=== PATIENT | female | born 1995 | race Caucasian/White ===

== ENCOUNTER 2019-04-30 13:09 | Outpatient (CLI) | payer MEDICAID | END 2019-04-30 15:01 | disposition home or self-care (01) | LOC: OBT 13:09 → L-D 13:09 → OBT 15:01 | DX: O36.8130 Decreased fetal movements, third trimester, not applicable or unspecified (principal); Z3A.38 38 weeks gestation of pregnancy | CPT/HCPCS: 76818 ==

== ENCOUNTER 2019-05-08 09:33 | Inpatient (IN) | payer MEDICAID ==
[2019-05-08] MEDS ORDERED: METHYLERGONOVINE 0.2 MG INJ IM (11:30)
[2019-05-08] MEDS ORDERED: CARBOPROST 250 MCG INJ IM (11:30)
[2019-05-08] MEDS ORDERED: OXYTOCIN 30 UNITS/LR 500 ML IV (11:30)
[2019-05-08] MEDS ORDERED: MISOPROSTOL 200 MCG TAB PR (11:30)
[2019-05-08] MEDS ORDERED: BUTORPHANOL 2 MG INJ IV (11:30)
[2019-05-08] MEDS: LACTATED RINGER'S 1,000 ML IV ×2 (11:38→15:16)
[2019-05-08] MEDS: BUTORPHANOL 2 MG INJ IV (12:43)
[2019-05-08 15:28] LABS: ADD MAN DIFF? NO
[2019-05-08 15:30] LABS: BASOPHIL # 0.1 10^3/ul (0.0-0.1); BASOPHILS % 0.5 % (0.0-2.0); EOSINOPHILS # 0.1 10^3/ul (0.0-0.5); EOSINOPHILS % 0.6 % (0.0-7.0); HEMATOCRIT 37.4 % (37.0-47.0); HEMOGLOBIN 12.3 g/dl (12.0-16.0); LYMPHOCYTES % 15.8 % (15.0-51.0); MEAN CORPUSCULAR HEMOGLOBIN 29.9 pg (29.0-33.0); MEAN CORPUSCULAR HGB CONC 32.9 g/dl (32.0-37.0); MEAN CORPUSCULAR VOLUME 90.8 fl (82.0-101.0); MEAN PLATELET VOLUME 11.8 fl (7.4-10.4); MONOCYTE # 0.7 10^3/ul (0.3-0.9); MONOCYTES % 5.4 % (0.0-11.0); NEUTROPHIL # 9.9 10^3/ul (1.6-7.5); NEUTROPHILS % 77.1 % (39.0-77.0); PLATELET COUNT 213 10^3/UL (140-415); RED BLOOD COUNT 4.12 10^6/ul (4.20-5.40); RED CELL DISTRIBUTION WIDTH 13.9 % (11.5-14.5)
[2019-05-08 15:30] LABS: WHITE BLOOD COUNT 12.8 10^3/ul (4.8-10.8)
[2019-05-08 15:49] LABS: PARTIAL THROMBOPLASTIN TIME 26.4 Sec (23.0-35.0)
[2019-05-08] MEDS ORDERED: NALOXONE (0.4 MG/ML) INJ IV (16:00)
[2019-05-08] MEDS ORDERED: DIPHENHYDRAMINE 50 MG INJ IV (16:00)
[2019-05-08] MEDS ORDERED: ONDANSETRON 4 MG INJ IV (16:00)
[2019-05-08 18:13] LABS: PROTIME 12.3 Sec (11.9-14.9)
[2019-05-08] MEDS ORDERED: MINERAL OIL LIGHT 10 ML VIAL (20:19)
[2019-05-08] MEDS: OXYTOCIN 30 UNITS/LR 500 ML IV (20:36)
[2019-05-09] MEDS: FENTAnyl 2MCG/ML-ROPIV 0.2% 100 ML BAG EPI (00:02)
[2019-05-09] MEDS: OXYTOCIN 30 UNITS/LR 500 ML IV ×2 (03:08)
[2019-05-09] MEDS: LIDOCAINE 1% (MPF) 30 ML INJ INJ (03:09)
[2019-05-09] MEDS ORDERED: OXYTOCIN 30 UNITS/LR 500 ML IV ×4 (03:17→05:00)
[2019-05-09] MEDS ORDERED: MISOPROSTOL 200 MCG TAB PR ×2 (03:30→05:00)
[2019-05-09] MEDS ORDERED: NACL 0.9% 3 ML SYG IV (03:30)
[2019-05-09] MEDS ORDERED: ONDANSETRON 4 MG INJ IV (03:30)
[2019-05-09] MEDS ORDERED: METHYLERGONOVINE 0.2 MG INJ IM ×2 (03:30→05:00)
[2019-05-09] MEDS ORDERED: CARBOPROST 250 MCG INJ IM ×2 (03:30→05:00)
[2019-05-09] MEDS ORDERED: LANOLIN HPA 1 PKT TOP (05:00)
[2019-05-09] MEDS ORDERED: DIBUCAINE 1% 30 GM OINT TOP (05:00)
[2019-05-09] MEDS ORDERED: ACETAMINOPHEN 325 MG TAB PO (05:00)
[2019-05-09] MEDS: WITCH HAZEL/GLYCERIN PAD PR (05:55)
[2019-05-09] MEDS: BENZOCAINE 20% 56 ML SPRAY TOP (05:55)
[2019-05-09] MEDS: IBUPROFEN 800 MG TAB PO ×3 (05:55→18:00)
[2019-05-09] MEDS ORDERED: IBUPROFEN 600 MG TAB PO (06:00)
[2019-05-09] MEDS: LACTATED RINGER'S 1,000 ML IV* ×3 (07:43→19:00)
[2019-05-09 08:39] LABS: HEMATOCRIT 30.4 % (37.0-47.0); HEMOGLOBIN 10.2 g/dl (12.0-16.0)
[2019-05-09] MEDS: SENNA/DOCUSATE NA (8.6MG/50MG) TAB PO ×2 (11:51→22:20)
[2019-05-09 15:49] LABS: RAPID PLASMA REAGIN NONREACTIVE (NR)
[2019-05-09] MEDS: HYDROCODONE/APAP (5/325) TAB PO (20:03)
[2019-05-10] MEDS: IBUPROFEN 800 MG TAB PO ×4 (00:11→18:00)
[2019-05-10 08:16] LABS: ADD MAN DIFF? NO
[2019-05-10 08:19] LABS: BASOPHIL # 0.1 10^3/ul (0.0-0.1); BASOPHILS % 0.3 % (0.0-2.0); EOSINOPHILS # 0.2 10^3/ul (0.0-0.5); EOSINOPHILS % 1.4 % (0.0-7.0); HEMOGLOBIN 9.5 g/dl (12.0-16.0); LYMPHOCYTES # 3.1 10^3/ul (0.8-2.9); LYMPHOCYTES % 19.5 % (15.0-51.0); MEAN CORPUSCULAR HEMOGLOBIN 29.7 pg (29.0-33.0); MEAN CORPUSCULAR HGB CONC 32.8 g/dl (32.0-37.0); MEAN CORPUSCULAR VOLUME 90.6 fl (82.0-101.0); MEAN PLATELET VOLUME 11.4 fl (7.4-10.4); MONOCYTE # 0.9 10^3/ul (0.3-0.9); MONOCYTES % 5.5 % (0.0-11.0); NEUTROPHIL # 11.5 10^3/ul (1.6-7.5); NEUTROPHILS % 72.6 % (39.0-77.0); PLATELET COUNT 182 10^3/UL (140-415); RED CELL DISTRIBUTION WIDTH 14.3 % (11.5-14.5)
[2019-05-10 08:19] LABS: WHITE BLOOD COUNT 15.8 10^3/ul (4.8-10.8)
[2019-05-10] MEDS: SENNA/DOCUSATE NA (8.6MG/50MG) TAB PO ×2 (09:58→21:06)
[2019-05-10] MEDS: HYDROCODONE/APAP (5/325) TAB PO (20:35)
[2019-05-11] MEDS: IBUPROFEN 800 MG TAB PO ×3 (05:50→12:28)
[2019-05-11 07:54] LABS: ADD MAN DIFF? NO
[2019-05-11 08:01] LABS: WHITE BLOOD COUNT 14.6 10^3/ul (4.8-10.8)
[2019-05-11 08:01] LABS: BASOPHIL # 0.1 10^3/ul (0.0-0.1); BASOPHILS % 0.3 % (0.0-2.0); EOSINOPHILS # 0.2 10^3/ul (0.0-0.5); EOSINOPHILS % 1.4 % (0.0-7.0); HEMATOCRIT 29.2 % (37.0-47.0); HEMOGLOBIN 9.5 g/dl (12.0-16.0); LYMPHOCYTES # 2.6 10^3/ul (0.8-2.9); LYMPHOCYTES % 17.5 % (15.0-51.0); MEAN CORPUSCULAR HEMOGLOBIN 29.4 pg (29.0-33.0); MEAN CORPUSCULAR HGB CONC 32.5 g/dl (32.0-37.0); MEAN CORPUSCULAR VOLUME 90.4 fl (82.0-101.0); MONOCYTE # 0.7 10^3/ul (0.3-0.9); MONOCYTES % 4.7 % (0.0-11.0); NEUTROPHILS % 75.3 % (39.0-77.0); PLATELET COUNT 209 10^3/UL (140-415); RED BLOOD COUNT 3.23 10^6/ul (4.20-5.40); RED CELL DISTRIBUTION WIDTH 14.4 % (11.5-14.5)
[2019-05-11] MEDS: MEASLES,MUMPS,RUBELLA VACCINE INJ SC* (09:00)
[2019-05-11] MEDS: DIPHTH/TET/ACEL PERTUSS (ADULT) 0.5 ML VIAL IM* (09:00)
[2019-05-11] MEDS: SENNA/DOCUSATE NA (8.6MG/50MG) TAB PO (10:14)
== END 2019-05-11 16:39 | disposition home or self-care (01) | DRG 807 ==
LOC: OBT 09:33 → PP1 05-09 05:02 → L-D 09:33 → OBT 11:00 → L-D 11:19
PROVIDERS: Obstetrics & Gynecology
PROC: 10E0XZZ Delivery of Products of Conception, External Approach (ICD-10-PCS; principal; 2019-05-08)
PROC: 0KQM0ZZ Repair Perineum Muscle, Open Approach (ICD-10-PCS; 2019-05-08)
DX: O70.1 Second degree perineal laceration during delivery (principal); Z37.0 Single live birth; Z3A.39 39 weeks gestation of pregnancy
CPT/HCPCS: 62322; 85014; 85018; 85025; 85610; 85730; 86592; 86850; 86900; 86901; 99464